=== PATIENT | female | born 1940 | race Caucasian/White ===

== ENCOUNTER → 2017-03-06 | Outpatient (CLI) | payer MEDICARE, BC ==
[~2017-03-06] MED LIST: GRALISE600 MG; HCTZ 25MG TAB25 MG PO; NORCO 325 MG-51 TAB PO; PROCARDIA XL 6060 MG PO; TENORMIN100 MG PO
== END ==
LOC: MC.RAD 10:26
DX: Z12.31 Encounter for screening mammogram for malignant neoplasm of breast (principal)

== ENCOUNTER → 2018-03-22 | Outpatient (CLI) | payer MEDICARE, BC | LOC: MC.RAD 10:53 | DX: Z12.31 Encounter for screening mammogram for malignant neoplasm of breast (principal) ==

== ENCOUNTER 2018-09-25 11:01 | Emergency (ER) | payer MEDICARE, BC ==
[~2018-09-25] VITALS: Ht 170.2 cm; Wt 66.0 kg
[2018-09-25 11:35] LABS: BASO # 0.1 (0.0-0.2); BASO % 0.5 % (0.0-2.0); EOS # 0.1 (0.0-0.7); EOS % 0.5 % (0-4.0); GRAN # 8.3 (1.4-6.5); GRAN % 75.9 % (42.2-75.2); HEMATOCRIT 43.8 % (37.0-47.0); HEMOGLOBIN 14.8 g/dl (12.5-16.0); LYMPH # 1.6 (1.2-3.4); LYMPH % 14.2 % (20.0-51.0); MEAN CELL VOLUME 90 fl (80.0-100.0); MEAN CORPUSCULAR HEMOGLOBIN 30 pg (27.0-31.0); MEAN CORPUSCULAR HGB CONC 34 g/dl (33.0-37.0); MEAN PLATELET VOLUME 10.7 fl (7.4-10.4); MONO # 0.9 (0.1-0.6); MONO % 7.9 % (1.7-9.3); PLATELET COUNT 254 K/mm3 (130-400); RED BLOOD COUNT 4.87 M/mm3 (4.10-5.30); REDCELL DISTRIBUTION WIDTH-CV 13.2 % (11.5-14.5)
[2018-09-25 11:40] LABS: ALANINE AMINOTRANSFERASE 25 U/L (9-52); ALBUMIN 4.5 gm/dL (3.5-5.0); ALKALINE PHOSPHATASE 82 U/L (50-136); ANION GAP 7 mmol/L (7-16); AST,SGOT 32 U/L (15-37); BILIRUBIN,TOTAL 0.9 mg/dL (0.0-1.0); BLOOD UREA NITROGEN 14 mg/dL (7-17); CALCIUM 9.7 mg/dL (8.4-10.2); CARBON DIOXIDE 28 mmol/L (22-30); CHLORIDE 95 mmol/L (98-107); GLUCOSE 143 mg/dL (74-106); SODIUM 131 mmol/L (137-145); TOTAL PROTEIN 8.4 gm/dL (6.4-8.2)
[2018-09-25 12:00] LABS: TROPONIN-I < 0.012 ng/mL (0.000-0.035)
[2018-09-25 12:03] LABS: POTASSIUM 2.9 mmol/L (3.4-5.0)
[2018-09-25] MEDS ORDERED: PREDNISONE20 MG PO (12:10)
[2018-09-25] MEDS ORDERED: PROAIR RES117 MCG/Ac IH (12:10)
[2018-09-25] MEDS ORDERED: DOXYCYCLINE 10100 MG PO (12:10)
[2018-09-25] MEDS ORDERED: ASPIRIN 81M81 MG/TA2 PO (13:41)
[2018-09-25 14:16] LABS: INR 1.1 (0.8-3.0); PROTHROMBIN TIME 12.3 SECONDS (9.7-12.8)
[2018-09-25 14:33] VITALS: BP 167/79; PULSE 102
== END 2018-09-25 14:46 | disposition home or self-care (01) ==
LOC: COL.ER 11:01
PROVIDERS: Emergency Medicine
DX: R05 Cough (principal); I10 Essential (primary) hypertension; Z85.3 Personal history of malignant neoplasm of breast; Z87.891 Personal history of nicotine dependence; Z90.89 Acquired absence of other organs; Z79.82 Long term (current) use of aspirin
CPT/HCPCS: J2930; J3480; J7030; Q9967

== ENCOUNTER 2018-10-19 14:32 | Outpatient (CLI) | payer MEDICARE, BC ==
[2018-10-19] VITALS (9 sets, daily range): BP systolic 157–199; BP diastolic 74–131; PULSE 72–93
[~2018-10-19] VITALS: Ht 170.2 cm; Wt 65.1 kg
[~2018-10-19 14:32] MED LIST changes: +ASPIRIN 32325 MG/TAB PO; +DOXYCYCLINE 10100 MG PO; +PREDNISONE20 MG PO; +PROAIR RES117 MCG/Ac IH
--- NOTE | 2018-10-19 17:25 | NUR ---
Pt arrived via ambulatory to # [id number].
[2018-10-19] MEDS ORDERED: PLAVIX 75MG TAB75 MG PO (18:05)
[2018-10-19] MEDS ORDERED: LEXAPRO 10MG10 MG PO (18:05)
--- NOTE | 2018-10-19 18:32 | NUR ---
Report given to Pravin Ferrell so she may take over pt cares.
--- NOTE | 2018-10-19 19:00 | NUR ---
Called Dr. Jama about blood pressure
--- NOTE | 2018-10-19 19:11 | NUR ---
10 mg Apresoline given IV per Dr. Wiley kaplan
--- NOTE | 2018-10-19 20:03 | NUR ---
INT discontinued intact. Discharge instructions given to son. Transferred to private car by jorden
== END 2018-10-19 20:03 | disposition home or self-care (01) ==
LOC: COL.RAD 14:32
DX: I72.4 Aneurysm of artery of lower extremity (principal)
CPT/HCPCS: J0360

== ENCOUNTER 2019-04-14 07:24 | Emergency (ER) | payer MEDICARE, BC ==
[~2019-04-14] VITALS: Ht 170.2 cm; Wt 65.9 kg
[~2019-04-14 07:24] MED LIST changes: +LEXAPRO 10MG10 MG PO; +PLAVIX 75MG TAB75 MG PO
[2019-04-14 07:27] VITALS: TEMP 98.1
[2019-04-14 08:43] LABS: COLLECTION METHOD CLEAN CATCH
[2019-04-14 08:46] LABS: BASO # 0.1 (0.0-0.2); BASO % 0.5 % (0.0-2.0); EOS # 0.1 (0.0-0.7); EOS % 0.8 % (0-4.0); GRAN # 11.5 (1.4-6.5); GRAN % 78.7 % (42.2-75.2); HEMATOCRIT 38.2 % (37.0-47.0); HEMOGLOBIN 12.4 g/dl (12.5-16.0); LYMPH # 1.7 (1.2-3.4); LYMPH % 11.8 % (20.0-51.0); MEAN CELL VOLUME 95 fl (80.0-100.0); MEAN CORPUSCULAR HEMOGLOBIN 31 pg (27.0-31.0); MEAN CORPUSCULAR HGB CONC 33 g/dl (33.0-37.0); MEAN PLATELET VOLUME 10.5 fl (7.4-10.4); MONO # 1.1 (0.1-0.6); MONO % 7.7 % (1.7-9.3); PLATELET COUNT 302 K/mm3 (130-400); RED BLOOD COUNT 4.04 M/mm3 (4.10-5.30); REDCELL DISTRIBUTION WIDTH-CV 14.5 % (11.5-14.5)
[2019-04-14 08:53] LABS: INR 1.1 (0.8-3.0); PH 8 (5-8); PROTHROMBIN TIME 12.9 SECONDS (9.7-12.8); SQUAMOUS EPITHELIAL 0-2 /hpf; URINE APPEARANCE Clear; URINE BACTERIA None Seen /hpf; URINE BILIRUBIN Negative (NEGATIVE); URINE BLOOD Negative (NEGATIVE); URINE COLOR Yellow; URINE GLUCOSE Negative (NEGATIVE); URINE KETONE Negative (NEGATIVE); URINE LEUKOCYTE ESTERASE 1+ (NEGATIVE); URINE NITRATE Positive (NEGATIVE); URINE PROTEIN(semi-quant) Negative (NEGATIVE); URINE RBC 0-2 /hpf; URINE UROBILINOGEN Negative (NEGATIVE)
[2019-04-14 08:55] LABS: ALBUMIN 4.3 gm/dL (3.5-5.0); BILIRUBIN,TOTAL 1.4 mg/dL (0.0-1.0); CALCIUM 9.2 mg/dL (8.4-10.2); CREATININE, serum 0.6 (0.52-1.25); PARTIAL THROMBOPLASTIN TIME 31.1 SECONDS (26.0-37.0); PHOSPHOROUS 2.8 mg/dL (2.5-4.5); TOTAL PROTEIN 7.4 gm/dL (6.4-8.2)
[2019-04-14 09:05] LABS: TROPONIN-I 0.02 ng/mL (0.000-0.035)
[2019-04-14] MEDS ORDERED: TAZTIA180 PO (09:39)
[2019-04-14] MEDS ORDERED: XARELTO20 MG PO (11:44)
[2019-04-14 13:10] VITALS: BP 168/89; PULSE 74
== END 2019-04-14 13:10 | disposition short-term general hospital (02) ==
LOC: COL.ER 07:24
PROVIDERS: Emergency Medicine
DX: N39.0 Urinary tract infection, site not specified (principal); I48.91 Unspecified atrial fibrillation; E87.6 Hypokalemia; Z79.82 Long term (current) use of aspirin
CPT/HCPCS: A4216; J0696; J3480; J7030